=== PATIENT | female | born 1945 | race Caucasian/White ===

== ENCOUNTER → 2016-10-23 | Outpatient (CLI) | payer OTHER | LOC: FIMAGING 17:21 | PROVIDERS: ATTEND Orthopaedic Surgery | DX: M17.11 Unilateral primary osteoarthritis, right knee (principal) ==

== ENCOUNTER 2016-11-05 07:13 | Observation (INO) | payer OTHER ==
[~2016-11-05 07:13] MED LIST: ROPIVACAINE 0.2% 80 MG, EPINEPHrine 0.2 MG, KETOROLAC TROMETHAMINE 30 MG in BAG 0 ML IU ONE; TRANEXAMIC ACID 3,000 MG in NS 50 ML IRR ONE; TRANEXAMIC ACID 3,000 MG/50 ML BAG IRR ONE; VANCOMYCIN 1 GM VIAL ONE
[2016-11-05] MEDS ORDERED: ceFAZolin 2 GM/DEXTROSE 100 ML IV ONE (08:09)
[2016-11-05] MEDS ORDERED: ACETAMINOPHEN 325 MG TAB PO ONE (08:09)
[2016-11-05] MEDS ORDERED: FAMOTIDINE 20 MG TAB PO ONE (08:09)
[2016-11-05] MEDS ORDERED: DEXAMETHASONE 4 MG/ML VIAL IVP ONE (08:09)
[2016-11-05] MEDS ORDERED: LIDOCAINE 1% 2 ML INJ ID PRN (08:11)
[2016-11-05] MEDS ORDERED: LR 1,000 ML IV ONE (08:11)
--- NOTE | 2016-11-05 08:27 | PDHPUP ---
History & Physical Update H&P update statement: This history and physical update is based on an assessment of the patient which was completed after admission or registration (within 24 hours), but prior to the surgery/procedure. H&P update: H&P reviewed & patient examined, no change in patient's condition since H&P completed
[2016-11-05] MEDS ORDERED: MIDAZOLAM 2 MG/2 ML VIAL IVP ONE (09:03)
[2016-11-05] MEDS ORDERED: MIDAZOLAM 2 MG/2 ML VIAL ONE (09:03)
--- NOTE | 2016-11-05 09:04 | PDANEPAE ---
ANE History of Present Illness here for r TKA ANE Past Medical History - Cardiovascular History Hx Hypertension: No Hx Arrhythmias: No Hx Chest Pain: No Hx Coronary Artery / Peripheral Vascular Disease: No Hx CHF / Valvular Disease: No Hx Palpitations: No - Pulmonary History Hx COPD: No Hx Asthma/Reactive Airway Disease: No Hx Recent Upper Respiratory Infection: No Hx Oxygen in Use at Home: No Hx Sleep Apnea: Yes Sleep Apnea Screening Result - Last Documented: Positive Pulmonary History Comment: sleep apnea-CPAP - Neurologic History Hx Cerebrovascular Accident: No Hx Seizures: No Hx Dementia: No Neurologic History Comment: tingling both feet with cold - Endocrine History Hx Diabetes: No - Renal History Hx Renal Disorders: Yes Renal History Comment: FREQUENCY - Liver History Hx Hepatic Disorders: No - Neurological & Psychiatric Hx Hx Neurological and Psychiatric Disorders: Yes Neurological / Psychiatric History Comment: situational depression/anxiety - Cancer History Hx Cancer: Yes Cancer History Comment: L breast CA. skin CA face-removed - Congenital Disorder History Hx Congenital Disorders: No - GI History Hx Gastrointestinal Disorders: Yes Gastrointestinal History Comment: ulcer distant past - Other Health History Other Health History: rosacea face. hand arthritis. clot L leg post AA 1986- treated blood thinners. clot lower L leg 1989 due to BC pills-treated with blood thinners - Chronic Pain History Chronic Pain: Yes (R knee) - Surgical History Prior Surgeries: L KNEE PARTIAL 12/19. bilateral rotater cuff repair. gallbladder 2001. L knee scope x2. total hysterectomy 1988. L breast lumpectomy ANE Review of Systems Review of systems is: negative - Exercise capacity Exercise capacity: >=4 METS METS (RN): 5 METS ANE Patient History - Allergies Allergies/Adverse Reactions: adhesive Allergy (Severe, Verified 05/10/13 15:18) procaine HCl [From Novocain] Allergy (Severe, Verified 05/10/13 15:19) Other-Enter Comments - Home Medications Home medications: home medication list seen and reviewed Home Medications: Fexofenadine HCl [Jenny Allergy] 60 mg PO DAILY 05/10/13 [Last Taken 10/26/16] Aspirin [Aspirin 81mg (*)] 81 mg PO DAILY 05/28/16 [Last Taken 10/26/16] Escitalopram Oxalate [Lexapro] 10 mg PO DAILY 05/28/16 [Last Taken 1 Week Ago] - NPO status NPO Status: no food or drink >8 hours NPO Since - Liquids (Date): 11/04/16 NPO Since - Liquids (Time): 23:59 NPO Since - Solids (Date): 11/04/16 NPO Since - Solids (Time): 18:00 - Anes Hx Anes Hx: no prior problems - Smoking Hx Smoking Status: Never smoked - Family Anes Hx Family Hx Anesthesia Complications: no ANE Labs/Vital Signs - Vital Signs Blood Pressure: 180/85 Heart Rate: 74 Respiratory Rate: 20 O2 Sat (%): 95 Height: 170.18 cm Weight: 104.326 kg ANE Physical Exam - Airway Neck exam: FROM Mallampati Score: Class 2 Mouth exam: normal dental/mouth exam - Pulmonary Pulmonary: no respiratory distress - Cardiovascular Cardiovascular: regular rate and rhythym - ASA Status ASA Status: III ANE Anesthesia Plan Anesthesia Plan: spinal
[2016-11-05] MEDS ORDERED: fentaNYL 100 MCG/2 ML INJ ONE (09:06)
[2016-11-05] MEDS ORDERED: PROPOFOL/EMULSION 500 MG/50 ML BOTTLE IV ONE ×2 (09:07→09:50)
[2016-11-05] MEDS ORDERED: NALOXONE HCL 0.4 MG/ML INJ IVP PRN (09:55)
[2016-11-05] MEDS ORDERED: PROMETHAZINE HCL 25 MG/ML INJ IVP PRN ×2 (09:55→10:28)
[2016-11-05] MEDS ORDERED: ALBUTEROL 3 ML DEYVIAL IH PRN (09:55)
[2016-11-05] MEDS ORDERED: HYDROmorphONE/DILAUDID 1 MG/ML SYR IVP PRN (09:55)
[2016-11-05] MEDS ORDERED: fentaNYL 100 MCG/2 ML INJ IVP PRN (09:55)
[2016-11-05] MEDS ORDERED: BISACODYL 10 MG SUPP PR PRN (10:28)
[2016-11-05] MEDS ORDERED: CYCLOBENZAPRINE 10 MG TAB PO PRN (10:28)
[2016-11-05] MEDS ORDERED: TEMAZEPAM 15 MG CAP PO PRN (10:28)
[2016-11-05] MEDS ORDERED: DIPHENOXYLATE/ATROPINE LOMOTIL 1 TAB PO PRN (10:28)
[2016-11-05] MEDS ORDERED: POLYETHYLENE GLYCOL 3350 17 GM PKT PO PRN (10:28)
[2016-11-05] MEDS ORDERED: PROMETHAZINE HCL 25 MG SUPPR PR PRN (10:28)
[2016-11-05] MEDS ORDERED: diphenhydrAMINE 25 MG CAP PO PRN (10:28)
[2016-11-05] MEDS ORDERED: ONDANSETRON DISINTEGRATING 4 MG TAB PO PRN (10:28)
[2016-11-05] MEDS ORDERED: ONDANSETRON 4 MG/2 ML VIAL IVP PRN (10:28)
[2016-11-05] MEDS ORDERED: MAGNESIUM HYDROXIDE 30 ML UDCUP PO PRN (10:28)
[2016-11-05] MEDS ORDERED: LACTULOSE 20 GM/30 ML UDCUP PO PRN (10:28)
--- NOTE | 2016-11-05 10:28 | POSTOPPROG ---
Post Op Note Date of Operation: 11/05/16 Surgeon: Fina Singleton Lining Machine Tender: maria teresa west Anesthesiologist: yaritza Anesthesia: IV Sedation, Spinal Pre-op Diagnosis: R knee medial compartment OA Post-op Diagnosis: R knee medial compartment OA Indication: Failed conservative therapies Procedure: R partial medial compartment arthroplasty, robot assist Inf/Abcess present in the surg proc area at time of surgery?: No EBL: Minimal
[2016-11-05] MEDS ORDERED: LR 1,000 ML IV SCH (10:30)
[2016-11-05] MEDS ORDERED: PROPOFOL 200 MG/20 ML VIAL ONE (10:32)
[2016-11-05] MEDS: ceFAZolin 2 GM/DEXTROSE 100 ML IV SCH ×2 (15:34→21:39)
[2016-11-05] MEDS: ACETAMINOPHEN 325 MG TAB PO SCH ×3 (15:34→23:52)
[2016-11-05] MEDS ORDERED: WARFARIN SODIUM 5 MG TAB PO SCH (16:00)
[2016-11-05] MEDS: FAMOTIDINE 20 MG TAB PO SCH (21:40)
[2016-11-05] MEDS: SENNOSIDES/DOCUSATE SODIUM TAB PO SCH (21:41)
[2016-11-05] MEDS: oxyCODONE IR 5 MG TAB PO PRN (21:43)
[2016-11-06 04:51] LABS: HEMATOCRIT 34.5 % (38.0-47.0); HEMOGLOBIN 11.4 g/dL (12.6-16.3)
[2016-11-06 05:01] LABS: INR 1.1 (0.83-1.16); PROTIME(PATIENT) 14.1 SEC (12.0-15.0)
[2016-11-06] MEDS: oxyCODONE IR 5 MG TAB PO PRN ×2 (05:15→09:34)
[2016-11-06] MEDS: ACETAMINOPHEN 325 MG TAB PO SCH (05:15)
[2016-11-06 07:57] VITALS: BP 171/74; PULSE 66; RESP 14; TEMP 97.8; O2SAT 97
--- NOTE | 2016-11-06 07:57 | SOAPPROG ---
KATHY Progress Note Assessment/Plan: Assessment: Patient is doing well POD 1 s/p R partial knee arthroplasty, robot assist Pain management: pain is well controlled on oral pain meds. VTE ppx: recommend lovenox x 4 days then coumadin daily for 3 weeks, cont RYDER and SCDs Anemia: level is expected initially postop. Asymptomatic. Continue to monitor D/c planning: d/c to home today pending release from PT Plan: 11/06/16 07:56 Objective: Vital Signs Temp Pulse Resp BP Pulse Ox 36.3 C 72 18 150/71 H 95 11/06/16 03:43 11/06/16 03:43 11/06/16 03:43 11/06/16 03:43 11/06/16 03:43 Laboratory Results 11/06/16 04:43 11/05/16 11/06/16 11/07/16 05:59 05:59 05:59 Intake Total 2495 Output Total 1585 Balance 910 PT 14.1 SEC (12.0-15.0) 11/06/16 04:43 INR 1.10 (0.83-1.16) 11/06/16 04:43 ICD10 Worksheet Patient Problems: Problems Problem Status Onset Primary osteoarthritis of one knee Acute
--- NOTE | 2016-11-06 08:39 | GDS ---
[f rep st] DISCHARGE SUMMARY ADMISSION DIAGNOSIS: Right knee osteoarthritis of the medial compartment. DISCHARGE DIAGNOSIS: Right knee osteoarthritis of the medial compartment. PROCEDURE: Right partial knee arthroplasty of the medial compartment, robot assist. VTE PROPHYLAXIS: Lovenox x4 days, followed by Coumadin for 21 days. BRIEF DESCRIPTION OF HOSPITAL STAY: Patient was admitted for an elective joint arthroplasty. The p atient tolerated the procedure well and has passed physical therapy. The patient was given appropri ate antibiotic prophylaxis and venous thromboembolism prophylaxis. The patient's pain was well cont rolled on oral pain medication, patient was holding down food, and had urinated. Decision was made to discharge the patient. The patient was given post-operative prescriptions pre-operatively. PLAN: Please follow up with Dr. Singleton as scheduled in 3 weeks. /[id number]/MODL
[2016-11-06] MEDS ORDERED: ENOXAPARIN 40 MG/0.4 ML SYR SC SCH (09:00)
[2016-11-06] MEDS ORDERED: CETIRIZINE 10 MG TAB PO SCH (09:00)
[2016-11-06] MEDS ORDERED: ESCITALOPRAM OXALATE 10 MG TAB PO SCH (09:00)
[2016-11-06] MEDS ORDERED: NON-FORMULARY NEW DRUG (Fexofenadine Hcl [Allegra Allergy] 60 MG) PO SCH (09:00)
[2016-11-06] MEDS: FAMOTIDINE 20 MG TAB PO SCH (09:34)
[2016-11-06] MEDS: SENNOSIDES/DOCUSATE SODIUM TAB PO SCH (09:34)
--- NOTE | 2016-11-06 09:35 | GOP ---
[f rep st] OPERATIVE REPORT DATE OF OPERATION: 11/05/2016 SURGEON: Forest Singleton MD [employer] SUPERVISOR: Parag Garcia, ALAYNA. ANESTHESIA: Spinal. PREOPERATIVE DIAGNOSIS: Right knee osteoarthritis. POSTOPERATIVE DIAGNOSIS: Right knee osteoarthritis. PROCEDURE PERFORMED: Right medial compartment partial knee replacement with computer navigation and robotic assistance. FINDINGS: ESTIMATED BLOOD LOSS: 30 cc. INDICATIONS: This is a 71-year-old female with progressive pain of the right knee unresponsive to conservative care. Risks and benefits of surgical intervention were explained in detail. DESCRIPTION OF PROCEDURE: The patient was brought to the operating room and placed on the table in supine position. Spinal anesthesia was induced without difficulty. A pneumatic tourniquet was applied about the right knee, right thigh, right femur was prepped and draped in sterile fashion. Attention was turned first to the distal aspect of the right femur. At 3 cm proximal to the lateral rise of the femur, 2 percutaneous half pins were placed for fixation of the femoral array. In a similar fashion, 2 pins were placed anterolateral on the tibia for fixation of the tibial array. External land marking and registration of the hip center were performed without difficulty. After exsanguination by elevation, the tourniquet was inflated to 275 mmHg. Incision was made from the tibial tuberosity to the superior pole of the patella. Dissection was carried out through the subcutaneous tissue to the deep fascia using Bovie electrocautery for hemostasis. Medial parapatellar arthrotomy was carried out to the superior pole of the patella. The medial collateral ligament was elevated and the infrapatellar fat pad was resected. Internal femoral and tibial registration were carried out without difficulty and the femoral and tibial checkpoints were placed and verified for accuracy. Attention was turned to the femur. The foot print for the size 4 femoral component was cut with the 6 mm bur using the [employer] robotic system and verified for accuracy against the CT based plan. The hole was cut for the femoral post. In a similar fashion, the 6 mm bur was used to cut the foot print for the size 4 tibial component using the [employer] system and verified for accuracy against the CT based plan. Attention was turned to the posterior aspect of the knee and remnants of the medial meniscus were excised. The posterior capsule was injected with ropivacaine, epinephrine and Toradol. Trial reduction was carried out and there was excellent range of motion, alignment and stability using the size 4 femoral component and the size 4 tibial component, 4 x 8 mm polyethylene. All trials were then removed. The joint was thoroughly irrigated and carefully dried. One package of cement and 1 gram of vancomycin were mixed in the vacuum mixer and placed on the fixation surfaces of all components. The components were implanted and all excess cement was thoroughly removed. Implant placement was verified against the CT view plan and found to be excellent. The tourniquet was deflated and all bleeders were coagulated. The wound was thoroughly irrigated and closed using interrupted sutures of 2-0 Vicryl for the joint capsule. The subcu was closed with 3-0 Vicryl and the skin with 4-0 Monocryl. Dermabond and Steri-Strips were applied, followed by a compressive dressing. The patient was then moved from the operating room to the recovery room in good condition, having tolerated the procedure well. CASE CLASSIFICATION: Clean. /[id number]/MODL MTDD
--- NOTE | 2016-11-06 15:52 | ASDISCHSUM ---
Discharge Information Plan Status:Home with No Needs Medically Cleared to Leave: Discharge Date:11/06/2016 10:11 AM CM D/C Disposition: ADT D/C Disposition:Home, Routine, Self-Care Projected Discharge Date:11/06/2016 10:11 AM Transportation at D/C: Discharge Delay Reason: Follow-Up Date:11/06/2016 10:11 AM Discharge Slot: Final Diagnosis: Placement Information Patient Contact Information Contact Name:RAMY Relationship: Address:[address] City:[facility] Phone: [facility]/Zip Code:[place] [address] Email: Financial Information Financial Class:Medicare Advantage Plans Primary Plan Desc:[facility] [employer] PLANS Primary Plan Number:[id number] Secondary Plan Desc: Secondary Plan Number: Assessment Information Intervention Information
== END 2016-11-06 10:11 | disposition home or self-care (01) ==
LOC: INTOOBSV 07:13 → F3N 07:13
PROVIDERS: ADMIT Orthopaedic Surgery; ATTEND Orthopaedic Surgery
DX: M17.11 Unilateral primary osteoarthritis, right knee (principal); E66.9 Obesity, unspecified; Z68.36 Body mass index [BMI] 36.0-36.9, adult; Z86.718 Personal history of other venous thrombosis and embolism; Z96.652 Presence of left artificial knee joint; Z79.01 Long term (current) use of anticoagulants
CPT/HCPCS: 20985; 27446; 73560; 97110; 97116; 97161; 97165; C1713; C1776; G0378; G8978; G8979; G8980; G8987; G8988; G8989; J0171; J0690; J1100; J1650; J1885; J2250; J2704; J2795; J3010; J3370